=== PATIENT | female | born 1940 | race Caucasian/White ===

== ENCOUNTER → 2018-10-26 | Day surgery (SDC) | payer OTHER, BC ==
--- NOTE | 2018-10-27 12:59 | PATH ---
Cytology Non-Gynecological Report Patient Name: TENISHA MENARD [facility]. Rec. #: [id number] /Age/Gender: 1940 (Age: 78) / F Account: [id number] Location: RADIOLOGY INTER Taken: 10/26/2018 Received: 10/26/2018 Reported: 10/27/2018 Physicians: Olya Saleem M.D. Specimen(s) Received LEFT THYROID FNA Clinical History Left lobe nodule, 3.16 x 2.65 x 1.96 cm Final Diagnosis THYROID, LEFT, FINE NEEDLE ASPIRATION: SATISFACTORY FOR EVALUATION. B[place] CLASS II: BENIGN. CYTOLOGIC FINDINGS ARE CONSISTENT WITH A BENIGN FOLLICULAR NODULE. SMALL FOLLICULAR CELLS AND COLLOID PRESENT. Electronically Signed Nguyen Ayala M.D. Gross Description Received are eight direct smears, four of which are air-dried and Diff-Quik stained, and four of which are alcohol fixed and Pap stained. Also received is 20 ml of bloody formalin from which one cellblock is prepared.
== END | disposition home or self-care (01) ==
LOC: JRADIR 09:39
PROVIDERS: ATTEND Internal Medicine Endocrinology, Diabetes & Metabolism
PROC: 0G9K3ZX Drainage of Thyroid Gland, Percutaneous Approach, Diagnostic (ICD-10-PCS; principal; 2018-10-26)
DX: E04.1 Nontoxic single thyroid nodule (principal)
CPT/HCPCS: 10005; 76942; 88173; 88305-TC

== ENCOUNTER 2020-10-25 12:14 | Emergency (ER) | payer OTHER, BC ==
[2020-10-25] MEDS ORDERED: ASPIRIN 81 MG CHEWABLE TABLETS PO ONE (12:29)
[2020-10-25] MEDS ORDERED: ALBUTEROL SO4 2.5/IPRATROPIUM 0.5 INH SOL 3 ML VIAL.NEB. NEB ONE ×3 (12:30→13:13)
[2020-10-25] MEDS ORDERED: NIFEdipine E.R. 30 MG TABLET PO ONE (12:31)
[2020-10-25] MEDS ORDERED: methylPREDNISolone NA SUCC 125 MG/2 ML VIAL IVPB ONE (12:35)
[2020-10-25 13:12] VITALS: TEMP 98.9; BMI 26.4
[2020-10-25] MEDS ORDERED: ASPIRIN 81 MG CHEWABLE TABLETS ONE (13:23)
[2020-10-25] MEDS ORDERED: methylPREDNISolone NA SUCC 125 MG/2 ML VIAL ONE (13:23)
[2020-10-25] MEDS ORDERED: NIFEdipine E.R. 30 MG TABLET ONE (13:23)
[2020-10-25 13:28] LABS: BASO % 1.9 % (0-2.0); EOS % 2.7 % (0-4.5); HEMATOCRIT 36.4 % (32.4-45.2); HEMOGLOBIN 11.9 GM/dl (10.7-15.3); LYMPH % 15.5 % (8-40); MCH 30.2 pg (25.7-33.7); MCHC 32.7 g/dl (32.0-36.0); MEAN CELL VOLUME 92.4 fl (80-96); MEAN PLT VOLUME 8.9 fl (7.5-11.1); MONO % 6.9 % (3.8-10.2); PLATELET COUNT 215 K/MM3 (134-434); RBC 3.94 M/mm3 (3.60-5.2); WHITE BLOOD COUNT 9.4 K/mm3 (4.0-10.8)
[2020-10-25 13:31] LABS: ALBUMIN 4.1 g/dl (3.4-5.0); BILIRUBIN,TOTAL 0.9 mg/dl (0.2-1); CREATININE 0.7 mg/dl (0.55-1.3); TOT PROT 6.8 g/dl (6.4-8.2)
[2020-10-25] MEDS ORDERED: PRESCRIPTION PAD 1 EACH EACH NR ONE (13:37)
[2020-10-25 14:23] LABS: CALCIUM 9.2 mg/dl (8.5-10)
[2020-10-25 14:31] LABS: N-TERMINAL BNP 923.6 pg/ml (5-450)
[2020-10-25 14:33] VITALS: BP 165/109; PULSE 93
[2020-10-26] MEDS ORDERED: NIFEdipine E.R. 30 MG TABLET PO ONE (12:31)
== END 2020-10-25 14:53 | disposition home or self-care (01) ==
LOC: FER 12:14
PROC: 3E0F7GC Introduction of Other Therapeutic Substance into Respiratory Tract, Via Natural or Artificial Opening (ICD-10-PCS; principal; 2020-10-25)
PROC: 3E033NZ Introduction of Analgesics, Hypnotics, Sedatives into Peripheral Vein, Percutaneous Approach (ICD-10-PCS; 2020-10-25)
DX: J45.41 Moderate persistent asthma with (acute) exacerbation (principal)
CPT/HCPCS: 36415; 71045-TC-FY; 80053; 82550; 83880; 84484; 85025; 93005; 99285-25

== ENCOUNTER 2022-01-18 16:46 | Emergency (ER) | payer OTHER, BC ==
[2022-01-18 17:04] VITALS: BP 166/99; PULSE 87; TEMP 97.9; BMI 25.7
[2022-01-18 19:40] LABS: BASO % 0.5 % (0-2.0); EOS % 0.9 % (0-4.5); HEMATOCRIT 38.6 % (32.4-45.2); HEMOGLOBIN 12.8 GM/dL (10.7-15.3); LYMPH % 12.3 % (8-40); MCH 30.5 pg (25.7-33.7); MCHC 33.3 g/dl (32.0-36.0); MEAN CELL VOLUME 91.7 fl (80-96); MEAN PLT VOLUME 8.4 fl (7.5-11.1); MONO % 7.3 % (3.8-10.2); PLATELET COUNT 213 10^3/uL (134-434); RBC 4.21 M/mm3 (3.60-5.2); RDW 14.2 % (11.6-15.6); WHITE BLOOD COUNT 8.8 K/mm3 (4.0-10.0)
[2022-01-18 20:07] LABS: CALCIUM 9.6 mg/dL (8.5-10.1)
[2022-01-18 20:08] LABS: BLOOD UREA NITROGEN 22.7 mg/dL (7-18)
[2022-01-18 20:10] LABS: CREATININE 0.8 mg/dL (0.55-1.3)
[2022-01-18 20:12] LABS: BILIRUBIN,TOTAL 0.7 mg/dL (0.2-1)
[2022-01-18 20:31] LABS: URINE APPEARANCE CLEAR; URINE BILIRUBIN NEGATIVE (NEGATIVE); URINE COLOR YELLOW; URINE GLUCOSE (UA) NEGATIVE (NEGATIVE); URINE KETONE NEGATIVE (NEGATIVE); URINE LEUK ESTERASE NEGATIVE (NEGATIVE); URINE NITRITE NEGATIVE (NEGATIVE); URINE PROTEIN NEGATIVE (NEGATIVE)
[2022-01-20 00:06] LABS: SARS-CoV-2 NAA Not Detected (Not Detected)
== END 2022-01-18 22:44 | disposition home or self-care (01) ==
LOC: JER 16:46
DX: J06.9 Acute upper respiratory infection, unspecified (principal)
CPT/HCPCS: 36415; 71046-TC-FY; 80053; 81003; 84484; 85025; 87086; 87804; 87807; 93005; 93010; 99285-25; C9803-CS; U0003; U0005

== ENCOUNTER 2022-02-27 13:54 | Inpatient (IN) | payer OTHER, BC ==
[2022-02-27 14:08] VITALS: BMI 25.9
[2022-02-27] MEDS ORDERED: ALBUTEROL SO4 2.5/IPRATROPIUM 0.5 INH SOL 3 ML VIAL.NEB. NEB ONE ×4 (15:05→16:00)
[2022-02-27] MEDS ORDERED: SODIUM CHLORIDE 0.9% 500 ML INFUS.BAG IV ONE ×2 (15:05→16:01)
[2022-02-27 15:14] LABS: BASO % 0.8 % (0-2.0); EOS % 0.1 % (0-4.5); HEMOGLOBIN 13.8 GM/dL (10.7-15.3); MCH 30.3 pg (25.7-33.7); MCHC 32.8 g/dl (32.0-36.0); MEAN CELL VOLUME 92.4 fl (80-96); MEAN PLT VOLUME 9.1 fl (7.5-11.1); MONO % 11.8 % (3.8-10.2); NEUT % 77.3 % (42.8-82.8); PLATELET COUNT 176 10^3/uL (134-434); RBC 4.55 M/mm3 (3.60-5.2); RDW 14.2 % (11.6-15.6)
[2022-02-27 15:35] LABS: CHLORIDE 99 mmol/L (98-107); SODIUM 137 mmol/L (136-145)
[2022-02-27 15:37] LABS: CALCIUM 9.8 mg/dL (8.5-10.1)
[2022-02-27 15:38] LABS: ANION GAP 8 MMOL/L (8-16); BLOOD UREA NITROGEN 22.9 mg/dL (7-18); CO2 30 mmol/L (21-32); GLUCOSE,RANDOM 131 mg/dL (74-106)
[2022-02-27 15:41] LABS: CREATININE 0.9 mg/dL (0.55-1.3); SGOT/AST 23 U/L (15-37); SGPT/ALT 27 U/L (13-61)
[2022-02-27 15:42] LABS: BILIRUBIN,TOTAL 0.7 mg/dL (0.2-1); TOT PROT 7.2 g/dl (6.4-8.2)
[2022-02-27 15:44] LABS: ALK PHOS 102 U/L (45-117)
[2022-02-27] MEDS ORDERED: methylPREDNISolone NA SUCC 125 MG/2 ML VIAL IVPB ONE (16:00)
[2022-02-27] MEDS ORDERED: methylPREDNISolone NA SUCC 125 MG/2 ML VIAL ONE (16:07)
[2022-02-27] MEDS ORDERED: ASPIRIN 81 MG CHEWABLE TABLETS PO ONE (16:42)
[2022-02-27] MEDS ORDERED: ASPIRIN 81 MG CHEWABLE TABLETS ONE (16:52)
[2022-02-27] MEDS ORDERED: CEFEPIME HCL/D5W 1 GM/50 ML BAG IVPB ONE (18:07)
[2022-02-27] MEDS ORDERED: VANCOMYCIN 1 GM in D5W (PRE-DOCKED) 1,000 MG/250 ML IVPB ONE (18:07)
[2022-02-27] MEDS ORDERED: VANCOMYCIN 1 GRAM (PRE-DOCKED) 1,000 MG/250 ML BAG IVPB ONE (18:28)
[2022-02-27] MEDS ORDERED: CEFEPIME 1 GM/100 ML BAG IVPB ONE (18:29)
[2022-02-27 19:43] LABS: ACTIVATED PTT 30.2 SECONDS (25.2-36.5); INR 1.31 (0.83-1.09); PROTHROMBIN TIME (PATIENT) 15.1 SEC (9.7-13.0)
[2022-02-28] MEDS ORDERED: REMDESIVIR 200 MG in SODIUM CHLORIDE 250 ML IVPB ONE ×3 (01:20→17:00)
[2022-02-28] MEDS ORDERED: ALBUTEROL SO4 HFA INHALER IH PRN (01:26)
[2022-02-28 02:40] LABS: LDH 226 U/L (84-246)
[2022-02-28] MEDS: APIXABAN 2.5 MG TABLET PO SCH ×3 (03:33→21:27)
[2022-02-28 08:40] LABS: BASO % 0.2 % (0-2.0); HEMATOCRIT 37.8 % (32.4-45.2); HEMOGLOBIN 12.8 GM/dL (10.7-15.3); LYMPH % 17.2 % (8-40); MCHC 33.9 g/dl (32.0-36.0); MEAN CELL VOLUME 91.5 fl (80-96); MEAN PLT VOLUME 8.7 fl (7.5-11.1); MONO % 10.5 % (3.8-10.2); NEUT % 72.1 % (42.8-82.8); PLATELET COUNT 157 10^3/uL (134-434); RBC 4.13 M/mm3 (3.60-5.2); RDW 14.3 % (11.6-15.6); WHITE BLOOD COUNT 5.7 K/mm3 (4.0-10.0)
[2022-02-28 08:55] LABS: CHLORIDE 103 mmol/L (98-107); SODIUM 139 mmol/L (136-145)
[2022-02-28] MEDS ORDERED: methylPREDNISolone NA SUCC 40 MG/1 ML VIAL IVPUSH SCH ×3 (09:00→22:00)
[2022-02-28 09:10] LABS: CALCIUM 8.8 mg/dL (8.5-10.1)
[2022-02-28 09:11] LABS: ALBUMIN 3.4 g/dl (3.4-5.0); ANION GAP 9 MMOL/L (8-16); BLOOD UREA NITROGEN 21.8 mg/dL (7-18); CO2 27 mmol/L (21-32); GLUCOSE,RANDOM 119 mg/dL (74-106)
[2022-02-28 09:13] LABS: CHOLESTEROL 126 mg/dL (50-200); CREATININE 0.7 mg/dL (0.55-1.3); SGOT/AST 19 U/L (15-37); SGPT/ALT 24 U/L (13-61)
[2022-02-28 09:14] LABS: BILIRUBIN,TOTAL 0.5 mg/dL (0.2-1); LDL CHOLESTEROL (ONLY SJRH) 80 mg/dL (5-100); TOT PROT 6.1 g/dl (6.4-8.2); TRIGLYCERIDES 73 mg/dL (0-150)
[2022-02-28 09:16] LABS: ALK PHOS 88 U/L (45-117); HDL CHOLESTEROL 35 mg/dL (40-60)
[2022-02-28] MEDS ORDERED: cefTRIAXone SODIUM 1 GM VIAL ONE (09:54)
[2022-02-28] MEDS ORDERED: DOXYCYCLINE HYCLATE 100 MG VIAL ONE (09:54)
[2022-02-28] MEDS ORDERED: DEXTROSE 5%-WATER 100 ML IVPB ONE (09:54)
[2022-02-28] MEDS ORDERED: DOXYCYCLINE INJECTION 100 MG in DEXTROSE 5%-WATER 100 ML IVPB SCH (10:00)
[2022-02-28] MEDS ORDERED: METOPROLOL TARTRATE 50 MG TABLET (FP) PO SCH (10:00)
[2022-02-28] MEDS ORDERED: FUROSEMIDE 20 MG TABLET (FP) PO SCH (10:00)
[2022-02-28] MEDS ORDERED: CEFTRIAXONE 1 GM in DEXTROSE 5%-WATER - 50 ML IVPB SCH (10:00)
[2022-02-28] MEDS: CLOPIDOGREL BISULFATE 75 MG TABLET (FP) PO SCH (11:25)
[2022-02-28] MEDS: LOSARTAN POTASSIUM 50 MG TABLET PO SCH (11:25)
[2022-02-28] MEDS ORDERED: CEFEPIME HCL 1 GM VIAL (RESTRICTED TO ID) ONE ×2 (11:28→17:06)
[2022-02-28] MEDS ORDERED: DEXTROSE 5%-WATER - 50 ML IVPB ONE ×2 (11:28→17:07)
[2022-02-28] MEDS: CEFEPIME 1 GM in DEXTROSE 5%-WATER - 1 GM/50 ML IVPB IVPB SCH ×2 (11:43→17:19)
[2022-02-28] MEDS: BUDESONIDE/FORMETEROL FUMARATE 160/4.5 mcg INHALER IH SCH ×2 (13:09→21:27)
[2022-02-28] MEDS ORDERED: guaiFENesin 200 MG/10 ML 10 ML UNIT-DOSE CUPS PO PRN (14:25)
[2022-02-28] MEDS: PANTOPRAZOLE 40 MG TABLET PO SCH (14:39)
[2022-02-28 17:37] LABS: EPI CELLS 2 /uL (0-25.1); HYALINE CASTS 2 /uL (0-3.1); PH,URINE 5.5 (5.0-8.0); URINE APPEARANCE CLEAR; URINE BACTERIA 2 /uL (0-1359); URINE BILIRUBIN NEGATIVE (NEGATIVE); URINE COLOR YELLOW; URINE GLUCOSE (UA) NEGATIVE (NEGATIVE); URINE KETONE NEGATIVE (NEGATIVE); URINE LEUK ESTERASE NEGATIVE (NEGATIVE); URINE NITRITE NEGATIVE (NEGATIVE); URINE PROTEIN 1+ (NEGATIVE); URINE RBC 7 /uL (0-23.9); URINE UROBILINOGEN 0.2 mg/dL (0.2-1.0); URINE WBC 3 /uL (0-25.8)
[2022-03-01] MEDS ORDERED: CEFEPIME HCL 1 GM VIAL (RESTRICTED TO ID) ONE ×3 (02:12→17:20)
[2022-03-01] MEDS ORDERED: DEXTROSE 5%-WATER - 50 ML IVPB ONE ×3 (02:13→17:20)
[2022-03-01] MEDS: CEFEPIME 1 GM in DEXTROSE 5%-WATER - 1 GM/50 ML IVPB IVPB SCH ×3 (02:21→17:24)
[2022-03-01 06:54] LABS: BASO % 0.2 % (0-2.0); EOS % 0.1 % (0-4.5); HEMATOCRIT 38.6 % (32.4-45.2); HEMOGLOBIN 12.7 GM/dL (10.7-15.3); LYMPH % 26.2 % (8-40); MCH 30.1 pg (25.7-33.7); MCHC 32.9 g/dl (32.0-36.0); MEAN CELL VOLUME 91.5 fl (80-96); MEAN PLT VOLUME 9.2 fl (7.5-11.1); MONO % 9.2 % (3.8-10.2); NEUT % 64.3 % (42.8-82.8); PLATELET COUNT 166 10^3/uL (134-434); RBC 4.22 M/mm3 (3.60-5.2); RDW 13.9 % (11.6-15.6); WHITE BLOOD COUNT 6.8 K/mm3 (4.0-10.0)
[2022-03-01 07:44] LABS: CALCIUM 9.5 mg/dL (8.5-10.1)
[2022-03-01 07:45] LABS: ALBUMIN 3.7 g/dl (3.4-5.0); BILIRUBIN,TOTAL 0.6 mg/dL (0.2-1); BLOOD UREA NITROGEN 28.2 mg/dL (7-18); CREATININE 0.8 mg/dL (0.55-1.3); MAGNESIUM 2.3 mg/dL (1.8-2.4)
[2022-03-01 07:46] LABS: PHOSPHOROUS 2.7 mg/dL (2.5-4.9); TOT PROT 6.6 g/dl (6.4-8.2)
[2022-03-01] MEDS: CLOPIDOGREL BISULFATE 75 MG TABLET (FP) PO SCH (10:01)
[2022-03-01] MEDS: LOSARTAN POTASSIUM 50 MG TABLET PO SCH (10:01)
[2022-03-01] MEDS: PANTOPRAZOLE 40 MG TABLET PO SCH (10:02)
[2022-03-01] MEDS: FUROSEMIDE 20 MG TABLET (FP) PO SCH (10:02)
[2022-03-01] MEDS: DEXAMETHASONE SOD PHOSPHATE 10 MG/1 ML VIAL IM SCH (10:03)
[2022-03-01] MEDS: APIXABAN 2.5 MG TABLET PO SCH ×2 (10:03→21:52)
[2022-03-01] MEDS: BUDESONIDE/FORMETEROL FUMARATE 160/4.5 mcg INHALER IH SCH ×2 (10:04→21:53)
[2022-03-01] MEDS ORDERED: REMDESIVIR 100 MG in SODIUM CHLORIDE 250 ML IVPB SCH (15:25)
[2022-03-01] MEDS: REMDESIVIR 100 MG in SODIUM CHLORIDE 250 ML IVPB SCH (17:24)
[2022-03-02] MEDS ORDERED: CEFEPIME HCL 1 GM VIAL (RESTRICTED TO ID) ONE ×3 (01:26→17:10)
[2022-03-02] MEDS ORDERED: DEXTROSE 5%-WATER - 50 ML IVPB ONE ×3 (01:26→17:10)
[2022-03-02] MEDS: CEFEPIME 1 GM in DEXTROSE 5%-WATER - 1 GM/50 ML IVPB IVPB SCH ×3 (01:43→17:59)
[2022-03-02 07:32] LABS: BASO % 0.2 % (0-2.0); HEMATOCRIT 37.4 % (32.4-45.2); HEMOGLOBIN 12.9 GM/dL (10.7-15.3); LYMPH % 22.4 % (8-40); MCH 31.3 pg (25.7-33.7); MCHC 34.5 g/dl (32.0-36.0); MEAN CELL VOLUME 90.6 fl (80-96); MEAN PLT VOLUME 9.3 fl (7.5-11.1); MONO % 8.9 % (3.8-10.2); NEUT % 68.5 % (42.8-82.8); PLATELET COUNT 161 10^3/uL (134-434); RBC 4.12 M/mm3 (3.60-5.2); RDW 13.7 % (11.6-15.6); WHITE BLOOD COUNT 7.3 K/mm3 (4.0-10.0)
[2022-03-02 07:42] LABS: ALBUMIN 3.7 g/dl (3.4-5.0); BLOOD UREA NITROGEN 28.2 mg/dL (7-18); CALCIUM 9.4 mg/dL (8.5-10.1); MAGNESIUM 2.2 mg/dL (1.8-2.4)
[2022-03-02 07:44] LABS: PHOSPHOROUS 2.6 mg/dL (2.5-4.9)
[2022-03-02 07:45] LABS: BILIRUBIN,TOTAL 0.5 mg/dL (0.2-1); CREATININE 0.8 mg/dL (0.55-1.3); TOT PROT 6.6 g/dl (6.4-8.2)
[2022-03-02] MEDS: CLOPIDOGREL BISULFATE 75 MG TABLET (FP) PO SCH (10:42)
[2022-03-02] MEDS: PANTOPRAZOLE 40 MG TABLET PO SCH (10:42)
[2022-03-02] MEDS: APIXABAN 2.5 MG TABLET PO SCH ×2 (10:43→21:14)
[2022-03-02] MEDS: FUROSEMIDE 20 MG TABLET (FP) PO SCH (10:43)
[2022-03-02] MEDS: LOSARTAN POTASSIUM 50 MG TABLET PO SCH (10:43)
[2022-03-02] MEDS: DEXAMETHASONE SOD PHOSPHATE 10 MG/1 ML VIAL IM SCH (10:47)
[2022-03-02] MEDS: BUDESONIDE/FORMETEROL FUMARATE 160/4.5 mcg INHALER IH SCH ×2 (10:47→21:15)
[2022-03-02] MEDS: REMDESIVIR 100 MG in SODIUM CHLORIDE 250 ML IVPB SCH (17:58)
[2022-03-03] MEDS ORDERED: DEXTROSE 5%-WATER - 50 ML IVPB ONE ×2 (01:03→10:54)
[2022-03-03] MEDS ORDERED: CEFEPIME HCL 1 GM VIAL (RESTRICTED TO ID) ONE ×2 (01:03→10:54)
[2022-03-03] MEDS: CEFEPIME 1 GM in DEXTROSE 5%-WATER - 1 GM/50 ML IVPB IVPB SCH ×2 (02:16→10:57)
[2022-03-03] MEDS: DEXAMETHASONE SOD PHOSPHATE 10 MG/1 ML VIAL IM SCH (10:35)
[2022-03-03] MEDS: APIXABAN 2.5 MG TABLET PO SCH ×2 (10:56→22:35)
[2022-03-03] MEDS: FUROSEMIDE 20 MG TABLET (FP) PO SCH (10:57)
[2022-03-03] MEDS: LOSARTAN POTASSIUM 50 MG TABLET PO SCH (10:57)
[2022-03-03] MEDS: PANTOPRAZOLE 40 MG TABLET PO SCH (10:57)
[2022-03-03] MEDS: BUDESONIDE/FORMETEROL FUMARATE 160/4.5 mcg INHALER IH SCH ×2 (10:58→22:35)
[2022-03-03 12:16] LABS: BLOOD UREA NITROGEN 29.2 mg/dL (7-18); CALCIUM 9.2 mg/dL (8.5-10.1)
[2022-03-03 12:17] LABS: BASO % 0.3 % (0-2.0); EOS % 0.9 % (0-4.5); HEMATOCRIT 39.7 % (32.4-45.2); HEMOGLOBIN 13.5 GM/dL (10.7-15.3); LYMPH % 26.8 % (8-40); MCH 30.6 pg (25.7-33.7); MCHC 34.1 g/dl (32.0-36.0); MEAN CELL VOLUME 89.8 fl (80-96); MEAN PLT VOLUME 9.2 fl (7.5-11.1); PLATELET COUNT 171 10^3/uL (134-434); RBC 4.42 M/mm3 (3.60-5.2); RDW 13.6 % (11.6-15.6); WHITE BLOOD COUNT 7.9 K/mm3 (4.0-10.0)
[2022-03-03 12:21] LABS: CREATININE 0.9 mg/dL (0.55-1.3)
[2022-03-03] MEDS: CLOPIDOGREL BISULFATE 75 MG TABLET (FP) PO SCH (14:44)
[2022-03-04 07:45] LABS: BASO % 0.1 % (0-2.0); EOS % 0.8 % (0-4.5); HEMATOCRIT 40.9 % (32.4-45.2); HEMOGLOBIN 13.5 GM/dL (10.7-15.3); LYMPH % 22.7 % (8-40); MCH 29.8 pg (25.7-33.7); MCHC 33.1 g/dl (32.0-36.0); MEAN CELL VOLUME 89.9 fl (80-96); MEAN PLT VOLUME 9.6 fl (7.5-11.1); MONO % 9.5 % (3.8-10.2); NEUT % 66.9 % (42.8-82.8); PLATELET COUNT 180 10^3/uL (134-434); RBC 4.55 M/mm3 (3.60-5.2); RDW 13.8 % (11.6-15.6); WHITE BLOOD COUNT 8.4 K/mm3 (4.0-10.0)
[2022-03-04 08:26] LABS: CALCIUM 9.6 mg/dL (8.5-10.1)
[2022-03-04 08:27] LABS: BLOOD UREA NITROGEN 29.6 mg/dL (7-18)
[2022-03-04 08:28] LABS: ALBUMIN 3.8 g/dl (3.4-5.0); MAGNESIUM 2.3 mg/dL (1.8-2.4)
[2022-03-04 08:30] LABS: PHOSPHOROUS 2.8 mg/dL (2.5-4.9)
[2022-03-04 08:32] LABS: TOT PROT 6.7 g/dl (6.4-8.2)
[2022-03-04] MEDS ORDERED: DEXAMETHASONE SOD PHOSPHATE 10 MG/1 ML VIAL IVPUSH SCH (09:53)
[2022-03-04] MEDS: CLOPIDOGREL BISULFATE 75 MG TABLET (FP) PO SCH (09:54)
[2022-03-04] MEDS: PANTOPRAZOLE 40 MG TABLET PO SCH (09:54)
[2022-03-04] MEDS: FUROSEMIDE 20 MG TABLET (FP) PO SCH (09:54)
[2022-03-04] MEDS: BUDESONIDE/FORMETEROL FUMARATE 160/4.5 mcg INHALER IH SCH (09:54)
[2022-03-04] MEDS: APIXABAN 2.5 MG TABLET PO SCH (09:54)
[2022-03-04] MEDS: LOSARTAN POTASSIUM 50 MG TABLET PO SCH (09:54)
[2022-03-04 14:35] VITALS: BP 122/80; PULSE 76; TEMP 98
== END 2022-03-04 16:25 | disposition home or self-care (01) | DRG 177 ==
LOC: JER 13:54 → JERBED 20:35 → J4W 02-28 01:14
PROVIDERS: ADMIT Hospitalist; ATTEND Internal Medicine
PROC: XW033E5 Introduction of Remdesivir Anti-infective into Peripheral Vein, Percutaneous Approach, New Technology Group 5 (ICD-10-PCS; principal; 2022-02-28)
DX: U07.1 COVID-19 (principal); J12.82 Pneumonia due to coronavirus disease 2019; J45.901 Unspecified asthma with (acute) exacerbation; I50.22 Chronic systolic (congestive) heart failure; I24.8 Other forms of acute ischemic heart disease; I48.91 Unspecified atrial fibrillation; Z79.01 Long term (current) use of anticoagulants; K21.9 Gastro-esophageal reflux disease without esophagitis; I25.10 Atherosclerotic heart disease of native coronary artery without angina pectoris; J45.909 Unspecified asthma, uncomplicated; I11.0 Hypertensive heart disease with heart failure; I71.2 Thoracic aortic aneurysm, without rupture; R91.8 Other nonspecific abnormal finding of lung field; E04.9 Nontoxic goiter, unspecified
CPT/HCPCS: 0241U-QW; 36415; 71046-TC-FY; 71275-TC; 80048; 80053; 80061; 81003; 82728; 83036; 83615; 83735; 83880; 84100; 84443; 84484; 85025; 85379; 85610; 85730; 86140; 86850; 86900; 86901; 93005; 93010; 93306-TC; 99285-25; C9399; J1100; Q9967

== ENCOUNTER 2022-10-14 12:17 | Emergency (ER) | payer OTHER, BC ==
[2022-10-14 12:39] VITALS: BP 138/86; PULSE 78; RESP 18; TEMP 98.1; BMI 25.2
[2022-10-14] MEDS ORDERED: ACETAMINOPHEN 1000 MG/100 ML BAG IVPB ONE (14:19)
[2022-10-14] MEDS ORDERED: ACETAMINOPHEN INJECTION 100 ML IVPB ONE (14:22)
[2022-10-14 15:47] LABS: BASO % 0.6 % (0-2.0); HEMATOCRIT 36.7 % (32.4-45.2); HEMOGLOBIN 11.9 GM/dL (10.7-15.3); LYMPH % 15.8 % (8-40); MCH 30.2 pg (25.7-33.7); MCHC 32.3 g/dl (32.0-36.0); MEAN CELL VOLUME 93.6 fl (80-96); MEAN PLT VOLUME 8.6 fl (7.5-11.1); MONO % 8.4 % (3.8-10.2); NEUT % 73.2 % (42.8-82.8); PLATELET COUNT 235 10^3/uL (134-434); RBC 3.92 M/mm3 (3.60-5.2); RDW 13.6 % (11.6-15.6); WHITE BLOOD COUNT 8.6 K/mm3 (4.0-10.0)
[2022-10-14 16:09] LABS: ALBUMIN 3.4 g/dl (3.4-5.0); BLOOD UREA NITROGEN 19.5 mg/dL (7-18); CALCIUM 9.3 mg/dL (8.5-10.1)
[2022-10-14 16:12] LABS: CREATININE 0.7 mg/dL (0.55-1.3)
[2022-10-14 16:13] LABS: BILIRUBIN,TOTAL 0.6 mg/dL (0.2-1); TOT PROT 6.8 g/dl (6.4-8.2)
[2022-10-14 16:37] LABS: ERYTHROCYTE SEDIMENTATION RATE 23 mm/hr (0-30)
[2022-10-14] MEDS ORDERED: oxyCODONE HCL 5 MG TABLET PO ONE (16:45)
[2022-10-14] MEDS ORDERED: oxyCODONE HCL 5 MG TABLET ONE (16:47)
== END 2022-10-14 18:11 | disposition home or self-care (01) ==
LOC: JER 12:17
PROC: 3E033GC Introduction of Other Therapeutic Substance into Peripheral Vein, Percutaneous Approach (ICD-10-PCS; principal; 2022-10-14)
DX: M25.50 Pain in unspecified joint (principal)
CPT/HCPCS: 36415; 80053; 82550; 85025; 85651; 86140; 99284-25